=== PATIENT | female | born 1990 | race Caucasian/White ===

== ENCOUNTER 2018-01-14 17:28 | Emergency (ER) | payer OTHER ==
[2018-01-14] MEDS ORDERED: Morphine INJ* 4 MG/ML 1 ML CARPUJECT IV ONE (21:03)
[2018-01-14] MEDS ORDERED: NS 0.9% 1000 ML* 1,000 ML IV ONE (21:03)
[2018-01-14] MEDS ORDERED: Metoclopramide IV* 5 MG/ML 2 ML VIAL IV ONE (21:03)
[2018-01-14] MEDS ORDERED: Ketorolac INJ* 30 MG/ML 1 ML VIAL IV PUSH ONE (21:08)
[2018-01-14 21:30] LABS: ABS Basophils 0 10^3/ul (0-0.2); ABS Eosinophils 0.3 10^3/ul (0-0.6); ABS Lymphocytes 2.9 10^3/ul (1.0-4.8); ABS Monocytes 0.5 10^3/ul (0-0.8); ABS Neutrophils 3.4 10^3/ul (1.5-7.7); ABS Nucleated RBC 0 10^3/ul; Eosinophil % 3.8 % (0-6); Hematocrit 42 % (35-47); Hemoglobin 14.5 g/dl (12.0-16.0); Lymphocyte % 41.4 % (25-47); Mean Corpuscular HGB Conc 35 g/dl (31-36); Mean Corpuscular Hemoglobin 31 pg (27-31); Mean Corpuscular Volume 88 fL (80-97); Mean Platelet Volume 7.6 um3 (7.4-10.4); Nucleated Red Blood Cells % 0; Platelet Count 259 10^3/ul (150-450); Red Blood Count 4.74 10^6/ul (4.0-5.4); Red Cell Distribution Width 13 % (10.5-15)
[2018-01-14] MEDS ORDERED: Morphine VIAL* 4 MG/ML VIAL (1 ml vial) IV ONE ×2 (21:52→22:01)
[2018-01-14 21:56] LABS: EGFR Non-African American 98.7 (>60)
--- NOTE | 2018-01-14 21:58 | RAD ---
HISTORY: Right-sided pelvic pain for 3 weeks COMPARISONS: None TECHNIQUE: Multiple transverse and longitudinal ultrasound images were obtained of the pelvis using grayscale, color Doppler, and spectral Doppler imaging using the endovaginal transducer. FINDINGS: UTERUS: The uterus measures 5.6 x 2 x 3.5 cm. The uterus is normal in shape, size, contour, and echotexture. ENDOMETRIUM: The endometrial stripe is smooth. The endometrium measures 0.4 cm in thickness. An IUD is noted centrally within the endometrial cavity towards the fundus. CUL-DE-SAC: There is a small amount of simple fluid within the cul-de-sac. This may be physiologic in a reproductive age female. RIGHT OVARY: The right ovary measures 4.4 x 3.7 x 3.6 cm. Normal arterial and venous waveforms are identifiable within the ovary on spectral Doppler imaging. There is a 3.5 x 2.5 x 3.6 cm simple cyst of the right ovary. LEFT OVARY: The left ovary measures 3 x 2.4 x 2 cm. Normal arterial and venous waveforms are identifiable within the ovary on spectral Doppler imaging. Multiple follicles are noted. BLADDER: The bladder is not well visualized. OTHER: None IMPRESSION: 1. AN IUD IS NOTED CENTRALLY WITHIN THE ENDOMETRIAL CAVITY TOWARDS THE FUNDUS. 2. SMALL AMOUNT OF FLUID WITHIN THE PELVIC CUL-DE-SAC. THIS MAY BE PHYSIOLOGIC WITHIN A REPRODUCTIVE AGE FEMALE. 3. 3.6 CM SIMPLE RIGHT OVARIAN CYST. 4. NO SONOGRAPHIC FEATURES OF TORSION. PLEASE NOTE THAT PARTIAL OR INTERMITTENT TORSION MAY BE SONOGRAPHICALLY NORMAL.
[2018-01-14 23:49] LABS: Urine Appearance Clear; Urine Blood Negative (Negative); Urine Color Yellow; Urine Ketones Negative (Negative); Urine Protein Negative (Negative); Urine Specific Gravity 1.014 (1.010-1.030); Urine Urobilinogen Negative (Negative)
--- NOTE | 2018-01-15 00:36 | ED ---
Tavares Chiu Tiffany, scribed for Jax Lima MD on 01/14/18 at 2104 . Abdominal Pain/Female - HPI Summary HPI Summary: 28 y/o F presenting to [facility] complains of right-sided abdominal pain that began 3 days ago. Rates the pain 7/10 in severity. Symptoms aggravated and alleviated by nothing. Reports nausea. Denies vomiting. Pt diagnosed with right ovarian cyst 3 months ago, pain was getting better with medication but has worsened in the last 3 days. Has IUD. - History of Current Complaint Chief Complaint: EDAbdPain Stated Complaint: PELVIC PAIN Time Seen by Provider: 01/14/18 20:44 Hx Obtained From: Patient Hx Last Menstrual Period: IUD Onset/Duration: Lasting Days - 3, Still Present Timing: Constant Severity Currently: Moderate Pain Intensity: 7 Pain Scale Used: 0-10 Numeric Location: Other - Right sided Aggravating Factor(s): Nothing Alleviating Factor(s): Nothing Associated Signs and Symptoms: Positive: Nausea. Negative: Vomiting Allergies/Adverse Reactions: Allergies Allergy/AdvReac Type Severity Reaction Status Date / Time gluten Allergy Abdominal Verified 01/14/18 17:59 Pain Home Medications: Home Medications Escitalopram (NF) [Lexapro 20 mg (NF)] 20 mg PO DAILY 01/14/18 [History Confirmed 01/14/18] LORazepam TAB(*) [Ativan 0.5 MG TAB (*)] 0.5 mg PO BID PRN 01/14/18 [History Confirmed 01/14/18] hydrOXYzine HCL TAB* [Atarax 25 MG TAB*] 25 mg PO QAM 01/14/18 [History Confirmed 01/14/18] hydrOXYzine HCL TAB* [Atarax 25 MG TAB*] 50 mg PO QPM 01/14/18 [History Confirmed 01/14/18] traMADol TAB* [Ultram*] 50 mg PO DAILY PRN 01/14/18 [History Confirmed 01/14/18] PMH/Surg Hx/FS Hx/Imm Hx Previously Healthy: No Endocrine/Hematology History: Reports: Other Endocrine/Hematological Disorders - High thyroid Denies: Hx Diabetes Cardiovascular History: Denies: Hx Hypertension Respiratory History: Denies: Hx Asthma Sensory History: Reports: Hx Contacts or Glasses Opthamlomology History: Reports: Hx Contacts or Glasses - Surgical History Surgery Procedure, Year, and Place: [place] teeth - Immunization History Date of Tetanus Vaccine: utd Date of Influenza Vaccine: none Infectious Disease History: No Infectious Disease History: Denies: Traveled Outside the [place] in Last 30 Days - Family History Known Family History: Positive: Diabetes - Mom with Type I, Other - Father had balloon angioplasty - Social History Alcohol Use: Weekly Hx Substance Use: No Substance Use Type: Reports: None Hx Tobacco Use: No Smoking Status (MU): Never Smoked Tobacco Review of Systems Negative: Fever Positive: Abdominal Pain - Right side, Nausea. Negative: Vomiting All Other Systems Reviewed And Are Negative: Yes Physical Exam - Summary Physical Exam Summary: VITAL SIGNS: Reviewed. GENERAL: Patient is a well-developed and nourished female who is lying comfortable in the stretcher. Patient is not in any acute respiratory distress. HEAD AND FACE: No signs of trauma. No ecchymosis, hematomas or skull depressions. No sinus tenderness. EYES: PERRLA, EOMI x 2, No injected conjunctiva, no nystagmus. EARS: Hearing grossly intact. Ear canals and tympanic membranes are within normal limits. MOUTH: Oropharynx within normal limits. NECK: Supple, trachea is midline, no adenopathy, no JVD, no carotid bruit, no c- spine tenderness, neck with full ROM. CHEST: Symmetric, no tenderness at palpation LUNGS: Clear to auscultation bilaterally. No wheezing or crackles. CVS: Regular rate and rhythm, S1 and S2 present, no murmurs or gallops appreciated. ABDOMEN: Tenderness over the right pelvic area. EXTREMITIES: FROM in all major joints, no edema, no cyanosis or clubbing. NEURO: Alert and oriented x 3. No acute neurological deficits. Speech is normal and follows commands. SKIN: Dry and warm Triage Information Reviewed: Yes Vital Signs On Initial Exam: Initial Vitals Temp Pulse Resp BP Pulse Ox 97 F 89 19 143/90 100 01/14/18 17:55 01/14/18 17:55 01/14/18 17:55 01/14/18 17:55 01/14/18 17:55 Vital Signs Reviewed: Yes Diagnostics - Vital Signs Vital Signs Temp Pulse Resp BP Pulse Ox 01/14/18 19:50 98.2 F 70 16 112/68 98 01/14/18 17:55 97 F 89 19 143/90 100 - Laboratory Lab Results: Lab Results 01/14/18 01/14/18 01/14/18 Range/Units 21:22 21:22 23:39 WBC 7.0 (3.5-10.8) 10^3/ul RBC 4.74 (4.0-5.4) 10^6/ul Hgb 14.5 (12.0-16.0) g/dl Hct 42 (35-47) % MCV 88 (80-97) fL MCH 31 (27-31) pg MCHC 35 (31-36) g/dl RDW 13 (10.5-15) % Plt Count 259 (150-450) 10^3/ul MPV 7.6 (7.4-10.4) um3 Neut % (Auto) 47.9 (38-83) % Lymph % (Auto) 41.4 (25-47) % [place] % (Auto) 6.5 (0-7) % Eos % (Auto) 3.8 (0-6) % Baso % (Auto) 0.4 (0-2) % Absolute Neuts (auto) 3.4 (1.5-7.7) 10^3/ul Absolute Lymphs (auto) 2.9 (1.0-4.8) 10^3/ul Absolute Monos (auto) 0.5 (0-0.8) 10^3/ul Absolute Eos (auto) 0.3 (0-0.6) 10^3/ul Absolute Basos (auto) 0 (0-0.2) 10^3/ul Absolute Nucleated RBC 0 10^3/ul Nucleated RBC % 0 Sodium 138 L (139-145) mmol/L Potassium 3.7 (3.5-5.0) mmol/L Chloride 105 (101-111) mmol/L Carbon Dioxide 27 (22-32) mmol/L Anion Gap 6 (2-11) mmol/L BUN 8 (6-24) mg/dL Creatinine 0.71 (0.51-0.95) mg/dL Est GFR ( Amer) 127.0 (>60) Est GFR (Non-Af Amer) 98.7 (>60) BUN/Creatinine Ratio 11.3 (8-20) Glucose 114 H (70-100) mg/dL Calcium 9.7 (8.6-10.3) mg/dL Total Bilirubin 0.30 (0.2-1.0) mg/dL AST 20 (13-39) U/L ALT 15 (7-52) U/L Alkaline Phosphatase 55 (34-104) U/L C-Reactive Protein < 1.00 (< 5.00) mg/L Total Protein 7.6 (6.4-8.9) g/dL Albumin 4.4 (3.2-5.2) g/dL Globulin 3.2 (2-4) g/dL Albumin/Globulin Ratio 1.4 (1-3) Beta HCG, Quant < 0.60 mIU/mL Urine Color Yellow Urine Appearance Clear Urine pH 6.0 (5-9) Ur Specific [place] 1.014 (1.010-1.030) Urine Protein Negative (Negative) Urine Ketones Negative (Negative) Urine Blood Negative (Negative) Urine Nitrate Negative (Negative) Urine Bilirubin Negative (Negative) Urine Urobilinogen Negative (Negative) Ur Leukocyte Esterase Negative (Negative) Urine Glucose Negative (Negative) Result Diagrams: 01/14/18 21:22 01/14/18 21:22 Lab Statement: Any lab studies that have been ordered have been reviewed, and results considered in the medical decision making process. - Additional Comments Diagnostic Additional Comments: Transvaginal US, per radiologist, shows 1. AN IUD IS NOTED CENTRALLY WITHIN THE ENDOMETRIAL CAVITY TOWARDS THE FUNDUS. 2. SMALL AMOUNT OF FLUID WITHIN THE PELVIC CUL-DE-SAC. THIS MAY BE PHYSIOLOGIC WITHIN A REPRODUCTIVE AGE FEMALE. 3. 3.6 CM SIMPLE RIGHT OVARIAN CYST. 4. NO SONOGRAPHIC FEATURES OF TORSION. PLEASE NOTE THAT PARTIAL OR INTERMITTENT TORSION MAY BE SONOGRAPHICALLY NORMAL. ED physician has reviewed this report. Re-Evaluation - Re-Evaluation First Eval Re-Evaluation Time: 00:30 Change: Improved Comment: Pt feels better, discussed discharge plan, and is agreeable to go home. Abdominal Pain Fem Course/Dx - Course Course Of Treatment: 28 y/o F presenting to [facility] complains of right-sided abdominal pain that began 3 days ago. Transvaginal US obtained. Pt will be discharged home with follow up from OBGYN. She has been instructed to treat pain with Motrin and Tylenol. - Diagnoses Provider Diagnoses: Right ovarian cyst Discharge - Sign-Out/Discharge Documenting (check all that apply): Discharge/Admit/Transfer - Discharge Plan Condition: Stable Disposition: HOME Patient Education Materials: Ovarian Cyst (ED) Referrals: No Primary Care Phys,NOPCP [Primary Care Provider] - Additional Instructions: Treat the pain with Motrin and Tylenol. Arrange a follow-up appointment with OBGYN in 1-2 days. Return to the Emergency Department for any new or worsening pain. - Billing Disposition and Condition Condition: STABLE Disposition: HOME The documentation as recorded by the Tavares angulo Tiffany accurately reflects the service I personally performed and the decisions made by Clarence wheatley Abdul, MD.
[2018-01-15 00:53] VITALS: BP 120/76
== END 2018-01-15 00:52 | disposition home or self-care (01) ==
LOC: ED 17:28
DX: N83.291 Other ovarian cyst, right side (principal); Z97.5 Presence of (intrauterine) contraceptive device
CPT/HCPCS: 36415; 76830; 80053; 81003; 84702; 85025; 86140; 96374; 96375; 96376; 99283; J1885; J2270; J2765

== ENCOUNTER 2018-02-10 12:09 | Day surgery (SDC) | payer OTHER ==
[~2018-02-10 12:09] MED LIST: Buffered Lidocaine 0.9% SYRIN* 5 ML/SYR SYRINGE INTRADERM ONE; Famotidine IV* 10 MG/ML 2 ML (20 mg) IV ONE
[2018-02-10] MEDS ORDERED: Famotidine IV* 10 MG/ML 2 ML (20 mg) ONE (12:17)
[2018-02-10] MEDS ORDERED: ceFOXitin 2 GM IVPREMIX* 2 GM/50 ML BAG IVPB ONE (13:00)
[2018-02-10] MEDS ORDERED: fentaNYL* 50 MCG/ML 2 ML VIAL (100 MCG VIAL) ONE ×3 (13:27→16:43)
[2018-02-10] MEDS ORDERED: Midazolam* 1 MG/ML 5 ML VIAL (5 MG) ONE (13:27)
[2018-02-10] MEDS ORDERED: Dexamethasone IV* 4 MG/ML 1 ML (4 MG) ONE (13:27)
[2018-02-10] MEDS ORDERED: Ondansetron ODT TAB* 4 MG ONE (13:27)
[2018-02-10] MEDS ORDERED: Propofol* 10 MG/ML 20 ML BTL IV PUSH ONE (13:27)
[2018-02-10] MEDS ORDERED: Lidocaine 2% PF * 5 ML VIAL ONE (13:27)
[2018-02-10] MEDS ORDERED: Cisatracurium* 2 MG/ML MDV 5 ML ONE (13:49)
[2018-02-10] MEDS ORDERED: Bupivacaine 0.5% SDV PF* 30ML VIAL ONE (14:18)
[2018-02-10] MEDS ORDERED: oxyCODONE/Acetamin 5/325 MG* TAB PO PRN (15:43)
[2018-02-10] MEDS ORDERED: Naloxone* 0.4 MG/ML 1 ML VIAL IV PRN (15:43)
[2018-02-10] MEDS ORDERED: DiMENhydriNATE IV* 50 MG/ML VIAL IV PUSH PRN (15:43)
[2018-02-10] MEDS: fentaNYL* 50 MCG/ML 2 ML VIAL (100 MCG VIAL) IV PRN ×2 (15:58→16:38)
[2018-02-10] MEDS ORDERED: oxyCODONE/Acetamin 5/325 MG* TAB ONE (16:43)
[2018-02-10 17:27] VITALS: BP 127/83
--- NOTE | 2018-02-12 11:41 | OP ---
OPERATIVE REPORT: DATE OF OPERATION: 02/10/18 DATE OF : 89 SURGEON: Neal Fong MD ROAD [place] SURGEON: Dr. Henderson. ANESTHESIA: General anesthetic with endotracheal intubation. PRE-OP DIAGNOSIS: Persistent right ovarian cyst and pelvic pain. POST-OP DIAGNOSES: 1. Persistent right ovarian cyst and pelvic pain. 2. Ruptured hemorrhagic cyst. OPERATIVE PROCEDURE: Diagnostic laparoscopy. ESTIMATED BLOOD LOSS: None. SPECIMENS: There were no specimens sent to pathology. FLUIDS: She received 1700 cc of IV crystalloid fluid. URINE OUTPUT: 100 cc of clear urine. FINDINGS: Revealed a normal uterus, a normal right ovary and right fallopian tube with a normal left fallopian tube and a hemorrhagic cystic ovary on the left adnexa. There was normal bowel, normal ap pendix, normal gallbladder, liver edge and there was a moderate amount of serosanguineous fluid in th e posterior cul-de- sac of the pelvis and no active bleeding. DESCRIPTION OF PROCEDURE: The patient was taken to the operating room where she was identified. She was placed on the operating table where a general anesthetic with endotracheal intubation was obtain ed without difficulty. She was then placed in a dorsal lithotomy position, prepped and draped in a n ormal sterile fashion. At this point, attention was brought on to the patient's perineum where the b ladder was catheterized with a Silverio catheter. A sponge stick was inserted into the vagina ut erus. Attention was then brought on to the patient's abdomen where a 1 cm infraumbilical skin incisi on was made with a knife, carried deep down to the underlying layer of fascia. The fascia was picked up with Baltazar clamps, brought up through the incision and incised immediately with a knife, deep fa scia. Incision was extended laterally with a Natasha clamp and entry into the peritoneum was confirmed using the Natasha clamp. The Baltazar clamp and the fascia were replaced with 0 Polysorb sutures. Throu gh this incision, a 10 mm trocar was introduced. The balloon in the trocar was inflated with 20 cc of air and we proceeded to insufflate the patient's abdomen with CO2 gas and a survey of the patient's anatomy with a laparoscope revealed findings as noted above. A second trocar was introduced at the right upper quadrant of the patient's abdomen under direct visualization. Through this trocar, we in serted a blunt grasper. We were able to then visualize the anatomy completely. It was noted that th e patient's left ovarian cyst had ruptured and this was consistent with a hemorrhagic ruptured cyst. There was moderate amount of serosanguineous fluid noted in the cul-de-sac. This was suctioned and a fter suctioning the fluid, we irrigated with normal saline and the irrigation fluid was then suctione d. At this point, we ended up removing all the instruments from the patient's abdomen. Sponge, lap, and needle counts were correct x1. The fascial incision on the umbilicus was closed with 0 Polysorb suture in a running fashion and the skin incisions were closed using 4-0 Monocryl in a subcuticular stitch. The patient tolerated the procedure well. Sponge, lap, and needle counts were correct x2. She was then transferred to recovery room area in stable condition. [id number]/[id number] #: [id number]
== END 2018-02-10 17:46 | disposition home or self-care (01) ==
LOC: OR 12:09
PROVIDERS: ATTEND Obstetrics & Gynecology
DX: N83.201 Unspecified ovarian cyst, right side (principal); R10.2 Pelvic and perineal pain; F41.8 Other specified anxiety disorders
CPT/HCPCS: 36415; 86850; 86900; 86901; A9270-GY; J0694; J1100; J2250; J2704; J3010